=== PATIENT | female | born 1985 | race Caucasian/White ===

== ENCOUNTER 2022-03-07 09:41 | Emergency (ER) | payer SELFPAY ==
[2022-03-07 10:01] VITALS: BP 137/103; PULSE 113; RESP 24; TEMP 38.1; O2SAT 97; BMI 38.1
[2022-03-07] MEDS: KETOROLAC 60 MG/2 ML inj IM (11:49)
--- OUTSIDE RECORDS SUMMARY | 2022-03-07 12:00 | XMS_ITS | Encounter Summary ---
:1985 Author Organization [facility] Address [address] [place] [id number] Care Team Providers Name Role Phone No Ref-Primary, Physician Primary Care Provider Reason for Visit Reason Onset Date Comments Results 07/27/2020 Encounter Details Date Type Department Care Team Description 07/27/2020 [facility] Debora Carroll sa, RN Results Emergency Dept [address] [place] [id number] Social History Tobacco Use Types Packs/Day Years Used Date Smoking Tobacco: Never Assessed Alcohol Habits Answer Date Recorded How often do you have a drink containing alcohol? Never 07/29/2020 How many drinks containing alcohol do you have on a typical Not asked day when you are drinking? How often do you have six or more drinks on one occasion? No t asked Sex Assigned at Date Recorded Not on file COVID-19 Exposure Response Date Recorded In the last month, have you been in contact with No / Unsure 07/24/2020 2:34 PM CDT someone who was confirmed or suspected to have Coronavirus / COVID-19? documented as of this encounter Miscellaneous Notes Telephone Encounter - Megan Carroll - 07/27/2020 5:45 PM CDT [facility] Emergency Department Lab result notification: Reason for call Wound Culture Lab Result Final Wound culture (Axilla) report on 07/27/20. [facility] Emergency Dept discharge antibiotic prescribed: Sulfamethoxazole- Trimethoprim (Bactrim DS, Septra DS) 800-160 mg PO tablet, ??2 tablets by mouth 2 times daily for 10 days. (Correction) #1. Bacteria, Light growth Actinomyces neuii , which is [NOT TESTED] to antibiotic Incision and Drainage performed in Emergency Dept [Yes / No]: Yes Recommendations in treatment per [facility] ED lab result Culture protocol. ED visit Date: 07/24/20 Symptoms reported at ED visit Left Axilla Abscess ?? HPI Diana Hamm is a 34 year old female who presents to the ED for an evaluation of an golf ball-sized abscess in the left axilla area since 3 weeks ago. The patient states the abscess has progressively become more painful and red. She took some ibuprofen at 0800 this morning for pain management. Besides the abscess, she otherwise feels fine and has no other medical complaints at this time. Miscellaneous information Current symptoms 5:46 Spoke with patient and she states that taking the Bactrim makes her feel confused and muddy thinking, she did not take it today and that made her feel better.She states she is unsure if that is part of the healing process. She states that she will try taking it again tomorrow and see how she feels. Did provide FNA triage line and did offer virtual urgent care visit, patient does not have insurance and declined. She will think about continuing the Bactrim. Reviewed signs and symptoms of when to call back. She states there is some soreness but feels that the area is improving well, no fever or drainage. Recommendations/Instructions Patient notified of lab result and treatment recommendations. Contact your PCP clinic or return to the Emergency department if your: ?? Symptoms return. ?? Symptoms worsen or other concerning symptom's. Megan Carroll [facility] [place] Emergency Dept Lab Result RN documented in this encounter Plan of Treatment Not on filedocumented as of this encounter Visit Diagnoses Not on filedocumented in this encounter Care Teams Plan Consultant Relationship Specialty Start Date End Date No Ref-Primary, Physician PCP - General 07/24/20 documented as of this encounter
--- OUTSIDE RECORDS SUMMARY | 2022-03-07 12:00 | XMS_ITS | Encounter Summary ---
:1985 Author Organization [facility] Address [address] [place] [id number] Care Team Providers Name Role Phone Unavailable Primary Care Provider Unavailable Encounter Details Date Type Department Care Team Description 07/16/2005 Historic Results [facility] MH/Ric Coy nd, MD [address] [place], [place] [address] (Wo rk) Social History Tobacco Use Types Packs/Day Years [...] Assigned at Date Recorded Not on file documented as of this encounter Plan of Treatment Not on filedocumented as of this encounter Procedures Procedure Name Priority Date/Time Associated Comments Diagnosis HCG QUALITATIVE URINE Routine 07/16/2005 4:57 PM Results for this CDT procedure are i n the results section. DRUG ABUSE SCREEN 8 Routine 07/16/2005 4:57 PM Re sults for this URINE (UR) CDT procedure are i n the results section. TSH WITH FREE T4 Routine 07/16/2005 8:42 AM Resul ts for this REFLEX CDT procedure are i n the results section. GGT Routine 07/16/2005 8:42 AM Results f or this CDT procedure are i n the results section. COMPREHENSIVE Routine 07/16/2005 8:42 AM Results for this METABOLIC PANEL CDT procedure ar e in the results section. documented in this encounter Results HCG qualitative urine (07/16/2005 4:57 PM CDT) P athologist Signature HCG Qual Urine Negative NEG MISYS Specimen Anatomical Collection Method Collection Time Receive d Time (Source) Location / / Volume Laterality 07/16/2005 4:57 PM 6 5:57 CDT PM CDT Martinez Santiago MD LAB - URINE ORDERABLES Performing Organization Address [facility] Phon e Number MISYS Drug abuse screen 8 urine (UR) (07/16/2005 4:57 PM CDT) [facility] gist Method Time Signature Amphetamine Qual Negative NEG MISYS Urine Ethanol Qual Urine Negative NEG MISYS Opiates Negative NEG MISYS Qualitative Urine PCP Qual Urine Negative NEG MISYS Benzodiazepine Negative NEG MISYS Qual Urine Barbiturates Qual Negative NEG MISYS Urine Cocaine Qual Urine Negative NEG MISYS Cannabinoids Qual Negative NEG MISYS Urine Specimen Anatomical Collection Method Collection Time Receive d Time (Source) Location / / Volume Laterality 07/16/2005 4:57 PM 6 5:57 CDT PM CDT Martinez Santiago MD LAB - URINE ORDERABLES Performing Organization Address [facility] Phon e Number MISYS TSH with free T4 reflex (07/16/2005 8:42 AM CDT) athologist Signature TSH 2.26 0.4 - 5.0 MISYS mU/L Specimen Anatomical Collection Method Collection Time Receive d Time (Source) Location / / Volume Laterality 07/16/2005 8:42 AM 6 5:57 CDT PM CDT Martinez Santiago MD LAB - BLOOD ORDERABLES Performing Organization Address [facility] Phon e Number MISYS GGT (07/16/2005 8:42 AM CDT) athologist Signature GGT 15 0 - 30 U/L MISYS Specimen Anatomical Collection Method Collection Time Receive d Time (Source) Location / / Volume Laterality 07/16/2005 8:42 AM 6 5:57 CDT PM CDT Martinez Santiago MD LAB - BLOOD ORDERABLES Performing Organization Address [facility] Phon e Number MISYS Comprehensive metabolic panel (07/16/2005 8:42 AM CDT) athologist Signature Sodium 143 133 - 144 MISYS mmol/L Potassium 3.8 3.4 - 5.3 MISYS mmol/L Chloride 110 96 - 110 MISYS mmol/L Carbon Dioxide 22 20 - 32 MISYS mmol/L Glucose 86 60 - 110 MISYS mg/dL Urea Nitrogen 11 5 - 24 MISYS mg/dL Creatinine 0.77 0.60 - MISYS 1.20 mg/dL GFR Estimate >90 >60 MISYS mL/min/1.7 m2 GFR Estimate If >90 >60 MISYS Black mL/min/1.7 m2 Calcium 9.1 8.7 - 10.8 MISYS mg/dL AST 21 0 - 35 U/L MISYS Protein Total 7.6 6.0 - 8.2 MISYS g/dL Anion Gap 11 6 - 17 MISYS mmol/L Albumin 4.2 3.3 - 4.6 MISYS g/dL ALT 17 0 - 50 U/L MISYS Alkaline 63 40 - 150 MISYS Phosphatase U/L Bilirubin Total 0.5 0.2 - 1.3 MISYS mg/dL Specimen Anatomical Collection Method Collection Time Receive d Time (Source) Location / / Volume Laterality 07/16/2005 8:42 AM 6 6:29 CDT PM CDT Martinez Santiago MD LAB - BLOOD ORDERABLES Performing Organization Address City/State/ZIP Code Phon e Number MISYS documented in this encounter Visit Diagnoses Not on filedocumented in this encounter
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
--- OUTSIDE RECORDS SUMMARY | 2022-03-07 12:00 | XMS_ITS | Encounter Summary ---
:1985 Author Organization [place] Address [address] [place] [address] Care Team Providers Name Role Phone No Ref-Primary, Physician Primary Care Provider [phone] Reason for Visit Reason Comments Medication Reaction Encounter Details Date Type Department Care Team Description 07/29/2020 Emergency [facility] Skyla Harman Ce llulitis, [facility] Emergency Dep t DO fold [address] [facility] [place], [place] [address] [address] [phone] [place], [place] [id number] (Wo rk) Social History Tobacco Use Types Packs/Day Years Used Date Smoking Tobacco: Every Day Alcohol Use Standard Drinks/Week Comments Never 0 (1 standard drink = 0.6 oz pure alcoho l) Alcohol Habits Answer Date Recorded How often [...] / COVID-19? documented as of this encounter Last Filed Vital Signs Vital Sign Reading Time Taken Comments Blood Pressure 161/113 07/29/2020 3:55 AM CDT Pulse 95 07/29/2020 3:55 AM CDT Temperature 36.7 ??C (98.1 ??F) 07/29/2020 3:55 AM CDT Respiratory Rate 20 07/29/2020 3:55 AM CDT Oxygen Saturation 97% 07/29/2020 3:55 AM CDT Inhaled Oxygen Concentration - - Weight - - Height - - Body Mass Index - - documented in this encounter Discharge Instructions Discharge InstructionsSkyla Harman DO - 07/29/2020 5:40 AM CDT I reviewed with the patient signs and symptoms of wound infection: worsening redness, swelling, pain, fever, streaking of the skin, and if this is a concern, to return for provider evaluation. Patient expressed understanding of instructions. AttachmentsThe following attachments cannot be sent through Care Everywhere. Cellulitis, Discharge Instructions for ([place])documented in this encounter Medications at Time of Discharge Medication Sig Dispensed Refills Start Date End Date cephALEXin (KEFLEX) 500 Take 1 capsule (500 28 capsule 0 08/05/2020 MG capsule mg) by mouth 4 times daily for 7 days sulfamethoxazole-trimeth Take 2 tablets by 40 tablet 0 07/0608/03/2020 oprim (BACTRIM DS) mouth 2 times daily 800-160 MG tablet for 10 days documented as of this encounter ED Notes Arthur Villegas RN - 07/29/2020 3:53 AM CDT Pt states confusion, lightheadedness, and itching after being placed on bactrim after having an axillary cyst drained at this facility within past week. ABCs intact GCS 15 Skyla Harman DO - 07/29/2020 3:49 AM CDT History Chief Complaint: Medication Reaction The history is provided by the patient. Diana Hamm is a 34 year old female who presents for evaluation of concerns for medication reaction in the setting of starting Bactrim empirically for possible MRSA after a left axilla abscess wasincised and drained here five days ago. The patient states that the infection started around three and a half weeks ago. The patient states that she believes the bactrim is causing her symptoms of milddisorientation, lightheadeness, mentally slow and nausea. No reported headache, fever, focal weakness, slurred speech, vomiting or other symptoms. The patient denies any alcohol or drug use. Wound Culture Results from 07/24/20: Light Growth of Actinomyces neuii (!) Review of Systems Constitutional: Negative for fatigue and fever. Gastrointestinal: Positive for nausea. Negative for abdominal pain and vomiting. Neurological: Positive for light-headedness. Negative for numbness and headaches. Psychiatric/Behavioral: Positive for confusion. All other systems reviewed and are negative. Allergies: No Known Drug Allergies Medications: Bactrim Past Medical History: History reviewed. No past medical history listed or noted by the patient. Past Surgical History: BUNCH BREAKER surgery orthopedic surgery Soft tissue surgery Social History: The patient presents to the emergency department alone. Negative for alcohol use. Negative for drug use. Physical Exam Patient Vitals for the past 24 hrs: BP Temp Temp src Pulse Resp SpO2 07/29/20 0615 132/71 -- -- 90 -- -- 07/29/20 0355 (!) 161/113 98.1 ??F (36.7 ??C) Oral 95 20 97 % Physical Exam Nursing note and vitals reviewed. Constitutional: Well nourished. Resting comfortably. Eyes: Conjunctiva normal. Pupils are equal, round, and reactive to light. ENT: Nose normal. Mucous membranes pink and moist. Neck: Normal range of motion. CVS: Normal rate, regular rhythm. Normal heart sounds. No murmur. Pulmonary: Lungs clear to auscultation bilaterally. No wheezes/rales/rhonchi. GI: Abdomen soft. Nontender, nondistended. No rigidity or guarding. MSK: No calf tenderness or swelling. Neuro: Alert. Follows simple commands. Skin: Skin is warm and dry. L. Axilla with mild erythema and warmth, no induration/crepitance Psychiatric: Normal affect. Emergency Department Course Laboratory: CBC: WBC: 6.6, HB.8, PLT: 256 BMP: Anion Gap 2 (low), Glucose 127 (high) o/w WNL (Creatinine: 0.76) ISTAT gases lactate charleen POCT: AWNL PROCEDURE: Limited Bedside ED Ultrasound for Soft Tissue PERFORMED BY: Dr. Skyla Harman INDICATIONS/SYMPTOM: Skin redness and pain: abscess vs cellulitis PROBE: High frequency linear probe BODY LOCATION: Soft tissue located on L. axilla FINDINGS: Cobblestoning of soft tissue: present Hypoechoic fluid (ie abscess) identified: no INTERPRETATION: The soft tissue and muscle layers were evaluated. No abscess was identified. Findings indicate cellulitis. DOCUMENTATION: Images were archived to the [place] hard drive and archived to IT systems. Emergency Department Course: Reviewed: 040: I reviewed the patient's nursing notes, vitals, past medical records, Care Everywhere. Assessments: 0415: I assessed the patient and performed a physical exam at this time. 0500: I reassessed the patient and informed them of their workup thus far. 0545: I reassessed the patient and informed them of their workup thus far. Interventions: 512 Keflex 500mg PO Disposition: The patient was discharged to home. Impression & Plan Medical Decision Making: Diana Hamm is a 34 year old female who presents for evaluation of concern for medication reaction. The patient had an axillary abscess drained five days ago and started on Bactrim. She presents expressing concerns the bactrim is causing ill side effects including confusion, lightheadedness, nausea. She is hypertensive on arrival though this downtrended without intervention. She is neuro intact.She denies any headache. I do not feel advanced neuroimaging is warranted as I doubt serious neurologic sequalae. Bedside US without underlying abscess. She is nontoxic on exam. The history, physical exam is consistent with cellulitis. I reviewed wound culture results. Will switch antibiotic to keflex and will discontinue bactrim at this time. Area of cellulitis was demarcated at bedside. Supportive outpatient management is indicated with antibiotics. The patient is instructed to follow-up with primary care physician to ensure no progression and rapid resolution. The patient was given precautions to return if high fever, spread greater than 2cm outside of the marked area, worsening pain, vomiting or any other worsening symptoms. I offered analgesia though patient declining at this time. Patient agreeable to pl an of care. Diagnosis: ICD-10-CM 1. Cellulitis, axillary fold L03.119 Discharge Medications: Discharge Medication List as of 07/29/2020 5:36 AM START taking these medications Details cephALEXin (KEFLEX) 500 MG capsule Take 1 capsule (500 mg) by mouth 4 times daily for 7 days, Disp-28 capsule, R-0, Local Print Scribe Disclosure: I, Rajan Chao, am serving as a scribe at 4:09 AM on 07/29/2020 to document services personally performed by Skyla Harman DO based on my observations and the provider's statements to me. Skyla Harman DO 07/29/20 0618 documented in this encounter Plan of Treatment Not on filedocumented as of this encounter Procedures Procedure Name Priority Date/Time Associated Comments Diagnosis ISTAT GASES LACTATE Routine 07/29/2020 4:45 AM Re sults for this VENOUS POCT CDT procedure are i n the results section. CBC WITH PLATELETS & STAT 07/29/2020 4:44 AM R esults for this DIFFERENTIAL CDT procedure are i n the results section. BASIC METABOLIC PANEL STAT 07/29/2020 4:44 AM Results for this CDT procedure are i n the results section. documented in this encounter Results ISTAT gases lactate charleen POCT (07/29/2020 4:45 AM CDT) P athologist Signature Ph Venous 7.42 7.32 - 07/29/2020 POINT OF CARE 7.43 pH 4:49 AM CDT TEST, HANDHELD METER PCO2 Venous 43 40 - 50 mm 07/29/2020 POINT OF CARE Hg 4:49 AM CDT TEST, HANDHELD METER PO2 Venous 38 25 - 47 mm 07/29/2020 POINT OF CARE Hg 4:49 AM CDT TEST, HANDHELD METER Bicarbonate 28 21 - 28 07/29/2020 POINT OF CARE Venous mmol/L 4:49 AM CDT TEST, HANDHELD METER O2 Sat Venous 73 % 07/29/2020 POINT OF CARE 4:49 AM CDT TEST, HANDHELD METER Lactic Acid 0.9 0.7 - 2.1 07/29/2020 PO[facility] CARE mmol/L 4:49 AM CDT TEST, HANDHELD METER Specimen Anatomical Collection Method Collection Time Receive d Time (Source) Location / / Volume Laterality 07/29/2020 4:45 AM 4:49 CDT AM CDT Skyla Harman DO LAB - BEAKER POCT Performing Organization Address City/State/ZIP Code Phon e Number [facility] POINT OF CARE TEST, HANDHELD METER POINT OF CARE TEST, HANDHELD METER (ABNORMAL) Basic metabolic panel (07/29/2020 4:44 AM CDT) athologist Signature Sodium 137 133 - 144 07/29/2020 [facility] mmol/L 5:14 AM [facility] Potassium 3.7 3.4 - 5.3 07/29/2020 [facility] mmol/L 5:14 AM [facility] Chloride 109 94 - 109 07/29/2020 [facility] mmol/L 5:14 AM [facility] Carbon Dioxide 26 20 - 32 07/29/2020 [facility] mmol/L 5:20 AM [facility] Anion Gap 2 (L) 3 - 14 07/29/2020 [place] mmol/L 5:20 AM [facility] Glucose 127 (H) 70 - 99 07/29/2020 [place] mg/dL 5:20 AM [facility] Urea Nitrogen 15 7 - 30 07/29/2020 [place] mg/dL 5:20 AM [facility] Creatinine 0.76 0.52 - 07/29/2020 [facility] 1.04 mg/dL 5:20 AM [facility] GFR Estimate >90 >60 07/29/2020 [place] mL/min/{1. 5:20 AM [facility] 73_m2} HOSPITAL Comment: Non GFR Calc Starting 03/23/2018, serum creatinine ba sed estimated GFR (eGFR) will be calculated using the Chronic Kidney Dise [facility] Epidemiology Collaboration (CKD-EPI) equation. GFR Estimate If >90 >60 mL/min/{1.73_m2} 07/29/2020 5: 20 AM [facility] Comment: GFR Calc Starting 03/23/2018, serum creatinine ba sed estimated GFR (eGFR) will be calculated using the Chronic Kidney Dise [facility] Epidemiology Collaboration (CKD-EPI) equation. Calcium 8.8 8.5 - 10.1 mg/dL 07/29/2020 5:20 AM [facility] Specimen Anatomical Collection Method Collection Time Receive d Time (Source) Location / / Volume Laterality Blood 07/29/2020 4:44 AM 4:55 CDT AM CDT Skyla E Ghazal DO LAB - BLOOD ORDERABLES Performing Organization Address City/State/ZIP Code Phon e Number M [facility] [address] [address] [facility] [address] [place], [place] [address], [facility] [phone] [facility] [address] [address], [facility] [phone] [facility] CBC with platelets differential (07/29/2020 4:44 AM CDT) [facility] Method Time Signature WBC 6.6 4.0 - 07/29/2020 [facility] 11.0 4:59 AM [facility] 10e9/L [facility] RBC Count 4.37 3.8 - 5.2 07/29/2020 [facility] 10e12/L 4:59 AM [facility] Hemoglobin 13.8 11.7 - 07/29/2020 [facility] 15.7 g/dL 4:59 AM [facility] Hematocrit 40.9 35.0 - 07/29/2020 [facility] 47.0 % 4:59 AM [facility] MCV 94 78 - 100 07/29/2020 [facility] fl 4:59 AM [facility] MCH 31.6 26.5 - 07/29/2020 [facility] 33.0 pg 4:59 AM [facility] MCHC 33.7 31.5 - 07/29/2020 [facility] 36.5 g/dL 4:59 AM [facility] RDW 13.2 10.0 - 07/29/2020 [facility] 15.0 % 4:59 AM [facility] Platelet Count 256 150 - 450 07/29/2020 [facility] 10e9/L 4:59 AM [facility] Diff Method Automated 07/29/2020 [facility] Method 4:59 AM [facility] % Neutrophils 44.7 % 07/29/2020 [facility] 4:59 AM [facility] % Lymphocytes 38.7 % 07/29/2020 [facility] 4:59 AM CDT [facility] % Monocytes 10.2 % 07/29/2020 [facility] 4:59 AM [facility] % Eosinophils 5.3 % 07/29/2020 [facility] 4:59 AM [facility] % Basophils 0.9 % 07/29/2020 [facility] 4:59 AM [facility] % Immature 0.2 % 07/29/2020 [facility] Granulocytes 4:59 AM [facility] Nucleated RBCs 0 0 /100 07/29/2020 [facility] 4:59 AM [facility] Absolute 2.9 1.6 - 8.3 07/29/2020 [place] Neutrophil 10e9/L 4:59 AM [facility] Absolute 2.5 0.8 - 5.3 07/29/2020 [place] Lymphocytes 10e9/L 4:59 AM [facility] Absolute 0.7 0.0 - 1.3 07/29/2020 [place] Monocytes 10e9/L 4:59 AM [facility] Absolute 0.4 0.0 - 0.7 07/29/2020 [place] Eosinophils 10e9/L 4:59 AM [facility] Absolute 0.1 0.0 - 0.2 07/29/2020 [place] Basophils 10e9/L 4:59 AM [facility] Abs Immature 0.0 0 - 0.4 07/29/2020 [place] Granulocytes 10e9/L 4:59 AM [facility] Absolute 0.0 07/29/2020 [place] Nucleated RBC 4:59 AM [facility] Specimen Anatomical Collection Method Collection Time Receive d Time (Source) Location / / Volume Laterality Blood 07/29/2020 4:44 AM 4:55 CDT AM CDT Skyla Harman DO LAB - BLOOD ORDERABLES Performing Organization Address City/State/ZIP Code Phon e Number M [facility] [address] [place], [place] [address] [facility] [address] [phone] documented in this encounter Visit Diagnoses Diagnosis Cellulitis, axillary fold Cellulitis and abscess of upper arm and forearm documented in this encounter Administered Medications Inactive Administered Medications - up to 3 most recent administrations Medication Order MAR Action Action Date Dose Rate Site cephALEXin (KEFLEX) capsule 500 mg Given 07/29/2020 5:13 AM CDT 500 mg STAT, 500 mg, Oral, ONCE, On 07/29/20 at 0445, For 1 dose, Indications: Skin and Soft Tissue Infection documented in this encounter Active and Recently Administered Medications Times are shown in CDT. Scheduled Medication Order 07/27/2020 07/28/2020 07/29/2020 cephALEXin (KEFLEX) capsule 500 mg (COMPLETED) 512 (Given - Provider: Mary Jane Ribeiro RN) STAT, 500 mg, Oral, ONCE, 07/29/20 at 0445, For 1 dose, Indications: Skin and Soft Tissue Infection documented in this encounter Care Teams Catering Convention Services Manager Relationship Specialty Start Date End Date No Ref-Primary, Physician PCP - General 07/24/20 documented as of this encounter
--- OUTSIDE RECORDS SUMMARY | 2022-03-07 12:00 | XMS_ITS | Encounter Summary ---
:1985 Author Organization [facility] Address [address] [place] [address] Care Team Providers Name Role Phone No Ref-Primary, Physician Primary Care Provider Encounter Details Date Type Department Care Team Description 07/24/2020 Travel Social History Tobacco Use Types Packs/Day Years [...] / COVID-19? documented as of this encounter Plan of Treatment Not on filedocumented as of this encounter Visit Diagnoses Not on filedocumented in this encounter Care Teams Edge Stainer Machine Relationship Specialty Start Date End Date No Ref-Primary, Physician PCP - General 07/24/20 documented as of this encounter
--- OUTSIDE RECORDS SUMMARY | 2022-03-07 12:00 | XMS_ITS | Encounter Summary ---
:1985 Author Organization [place] Address [address] [place] [address] Care Team Providers Name Role Phone No Ref-Primary, Physician Primary Care Provider Reason for Visit Reason Comments Wound Infection Encounter Details Date Type Department Care Team Description 07/24/2020 [facility] Abscess [facility], left; [facility] Emergency Dep t MD Kevin Cellulitis of axilla, left [address] [facility] EM[facility] PHYS[facility]ANS [facility] [phone] [address] [phone] [address] [place], [place] [id number] (Wo rk) Social History Tobacco Use Types [...] Sign Reading Time Taken Comments Blood Pressure 158/108 07/24/2020 2:37 PM CDT Pulse 81 07/24/2020 2:37 PM CDT Temperature 36.7 ??C (98 ??F) 07/24/2020 2:37 PM CDT Respiratory Rate 20 07/24/2020 2:37 PM CDT Oxygen Saturation 99% 07/24/2020 2:37 PM CDT Inhaled Oxygen Concentration - - Weight - - Height - - Body Mass Index - - documented in this encounter Discharge Instructions AttachmentsThe following attachments cannot be sent through Care Everywhere. Abscess, Incision And Drainage ([place])documented in this encounter Medications at Time of Discharge Medication Sig Dispensed Refills Start Date End Date sulfamethoxazole-trimeth Take 2 tablets by 40 tablet 0 07/0608/03/2020 oprim (BACTRIM DS) mouth 2 times daily 800-160 MG tablet for 10 days documented as of this encounter ED Notes Wendi Concepcion RN - 07/24/2020 2:36 PM CDT 3 weeks of abscess left axilla area. Golfball size and growing. Very painful. Ibuprofen taken at 0800 this am. Cj Salter MD - 07/24/2020 1:50 PM CDT History Chief Complaint: Left Axilla Abscess JODIE Hamm is a 34 year old female [...] no other medical complaints at this time. Review of Systems Skin: Positive for wound (left axilla abscess). All other systems reviewed and are negative. Allergies: The patient has no known allergies. Medications: The patient is not currently taking any prescribed medications. Past Medical History: Bipolar disorder Social History: The patient presented alone. Physical Exam Patient Vitals for the past 24 hrs: BP Temp Temp src Pulse Resp SpO2 07/24/20 1437 (!) 158/108 98 ??F (36.7 ??C) Oral 81 20 99 % Physical Exam Gen: Uncomfortable secondary to pain Eyes: Normal conjunctiva, No discharge CV: ppi, regular Resp: speaking in full sentences without any resp distress Extremity: Left axilla there is an approximately 5 x 2 and half centimeter fluctuant area there is an area and this is exquisitely tender to touch extending medially towards the lateral border of the pectoralis muscle there is blanching erythema is also tender to touch. No spontaneous drainage is occur ring. Limited range of motion of the left upper extremity secondary to pain from this axillary mass Skin: warm dry well perfused Neuro: Alert, no gross motor or sensory deficits, gait stable Emergency Department Course Procedures: Incision and Drainage LOCATIONS: Left axilla ANESTHESIA: Local field block using Lidocaine 1% with epinephrine, total of 5 mLs PREPARATION: Cleansed with Normal Saline PROCEDURE: Area was incised with # 11 Blade (Sharp Point) with a Single Straight incision. Wound treatment included Deloculation, Purulent Drainage and Expression of Material. Packing consisted of No Packing. Appropriate dressing was applied to cover the area. PATIENT STATUS: Patient tolerated the procedure well. There were no complications. Laboratory: Wound Culture Aerobic Bacterial: pending Emergency Department Course: Reviewed: 1614 I reviewed nursing notes, vitals and past history. Assessments: 1619 I obtained history and examined the patient as noted above. 1635 I performed an incision and drainage procedure as documented above. Disposition: The patient was discharged to home. Impression & Plan Medical Decision Making: Axillary abscess with associated cellulitis Incision and drainage here in the. Wound culture sent will start empirically on Bactrim given the suspicion for MRSA abscess. Patient comfortable agreeable with that plan. Critical Care time: none Diagnosis: ICD-10-CM 1. Abscess of axilla, left L02.412 Wound Culture Aerobic Bacterial 2. Cellulitis of axilla, left L03.112 Discharge Medications: Discharge Medication List as of 07/24/2020 5:02 PM START taking these medications Details sulfamethoxazole-trimethoprim (BACTRIM DS) 800-160 MG tablet Take 2 tablets by mouth 2 times daily for 10 days, Disp-40 tablet, R-0, E-PrescribeIndication: Possible MRSA infection Scribe Disclosure: I, Katie Quezada, am serving as a scribe at 4:34 PM on 07/24/2020 to document services personally performed by Cj Salter MD based on my observations and the provider's statements to me. Cj Salter MD 07/25/20 0038 documented in this encounter Miscellaneous Notes Result Encounter Note - Dash Platt RN - 07/24/2020 5:18 PM CDT [facility] ED discharge antibiotic (if prescribed): ??Sulfamethoxazole- Trimethoprim (Bactrim DS, Septra DS) 800-160 mg PO tablet, ??2 tablets by mouth 2 times daily for 10 days. (Correction) Incision and Drainage performed in Emergency Dept [Yes / No] : Yes No changes in treatment per [facility] ED lab result culture protocol. documented in this encounter Plan of Treatment Not on filedocumented as of this encounter Procedures Procedure Name Priority Date/Time Associated Diagnosis Comme nts WOUND CULTURE STAT 07/24/2020 4:48 PM Abscess of axilla, Re sults for this AEROBIC BACTERIAL CDT left procedure are in the results section. documented in this encounter Results (ABNORMAL) Wound Culture Aerobic Bacterial (07/24/2020 4:48 PM CDT) Component Value Ref Test Analysis Performed At [facility] Range Method Time Signature Specimen Wound Axilla INFECTIOUS Description Abscess DISEASES [facility], [facility] Special Specimen 07/24/2020 INFECTIOUS Requests collected in 8:31 PM CDT DISEASES eSwab transport DIAGNOSTIC (white cap) LABORATORY, [facility] Culture Micro Light growth 07/27/2020 INFECTIOUS Actinomyces neuii 8:52 AM CDT DISEASES (A) DIAGNOSTIC LABORATORY, [facility] Culture Micro Susceptibility 07/27/2020 INFECTIOUS testing not 8:52 AM CDT DISEASES routinely done DIAGNOSTIC LABORATORY, [facility] Specimen Anatomical Collection Method Collection Time Receive d Time (Source) Location / / Volume Laterality Specimen from 07/24/2020 4:48 PM 07/25/19 21 5:10 wound (specimen) CDT PM CDT Comment: Axilla~Abscess Cj Salter MD LAB - MICRO GENERAL ORDERABL ES Performing Organization Address City/State/ZIP Code Phon e Number INFECTIOUS DISEASES DIAGNOSTIC [address] [facility] [address] [address] LABORATORY, [facility] documented in this encounter Visit Diagnoses Diagnosis Abscess of axilla, left Cellulitis and abscess of upper arm and forearm Cellulitis of axilla, left Cellulitis and abscess of upper arm and forearm documented in this encounter Active and Recently Administered Medications Care Teams Metal Furniture Glazier Relationship Specialty Start Date End Date No Ref-Primary, Physician PCP - General 07/24/20 documented as of this encounter
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
--- OUTSIDE RECORDS SUMMARY | 2022-03-07 12:00 | XMS_ITS | Clinical Summary ---
:1985 Author Organization [place] Address [address] [place] [address] Care Team Providers Name Role Phone No Ref-Primary, Physician Primary Care Provider Allergies No known active allergies Medications No known medications Social History Tobacco Use Types Packs/Day Years [...] Assigned at Date Recorded Not on file Last Filed Vital Signs Vital Sign Reading Time Taken Comments Blood Pressure 132/71 07/29/2020 6:15 AM CDT Pulse 90 07/29/2020 6:15 AM CDT Temperature 36.7 ??C (98.1 ??F) 07/29/2020 3:55 AM CDT Respiratory Rate 20 07/29/2020 3:55 AM CDT Oxygen Saturation 97% 07/29/2020 3:55 AM CDT Inhaled Oxygen Concentration - - Weight - - Height - - Body Mass Index - - Plan of Treatment Health Maintenance Due Date Last Done Comments ADVANCE CARE PLANNING 1985 ANNUAL REVIEW OF HM ORDERS 1985 HEPATITIS B IMMUNIZATION (1 of 3 - 1985 3-dose series) YEARLY PREVENTIVE VISIT 1985 COVID-19 Vaccine (#1) 06/21/1987 Pneumococcal Vaccine: Pediatrics 1992 (0 to 5 Years) and At-Risk Patients (6 to 64 Years) (1 - PCV) HIV SCREENING 2001 HEPATITIS C SCREENING 2004 PAP 12/22/2007 DTAP/TDAP/TD IMMUNIZATION (1 - 12/22/2011 Tdap) PHQ-2 (once per calendar year) 2021 INFLUENZA VACCINE (#1) 2021 IPV IMMUNIZATION Aged Out No longer eligi ble based on patient's age to complete this topic MENINGITIS IMMUNIZATION Aged Out No longe r eligible based on patient's age to complete this topic Care Teams Personal Driver Relationship Specialty Start Date End Date No Ref-Primary, Physician PCP - General 07/24/20
--- NOTE | 2022-03-09 14:09 | ED_ITS ---
HPI - Ear Problem General Chief complaint: Ear/Nose/Throat Problem Stated complaint: Possible Lt ear drum rupture History of Present Illness HPI Narrative: 36-year-old woman here with complaint of left ear pain. Severe. Was recently diagnosed with influenza a. Has had nasopharyngeal congestion. Left ear pain started yesterday and has escalated tremendously. Then there was a sudden whoosh of air and something randolph to this and bubbling and pinkish yellow drainage. Pain has continued. Unable to get it under control with ibuprofen or acetaminophen. Related Data Home Medications Medication Instructions Recorded Confirmed No Known Home Medications 03/07/22 03/07/22 Allergies Allergy/AdvReac Type Severity Reaction Status Date / Time No Known Drug Allergies Allergy Verified 03/07/22 10:07 Review of Systems Status of ROS: Reports: 6 or more systems reviewed and unremarkable except as noted in History and below PFSH PFSH Social History Smoking Status: Current every day smoker What tobacco products do you use: cigarettes Years smoked: 18 Smoking quit date/years: >15 years ago Do you use any of these nicotine containing products: None Second hand tobacco smoke exposure: No How often do you have a drink containing alcohol: never AUDIT-C Alcohol total score: 0 Non-prescribed substance use: denies use Caffeine: Yes service: No Exam Narrative: Exam Narrative: Restless. Tearful. Clearly uncomfortable. Just wants to stand. Rocking back and forth. Hand at times to the left side of her face. Oropharynx is unremarkable. Moist. Right TM WNL. Is tender to movement of the tragus in the pin a on the left. Generally exquisitely tender to palpation over the periauricular area of the left ear. There is mild erythema without significant edema to the canal. The TM has a bubbles noted within or behind. Not terribly inflamed. This there may be a perforation visible here though a little difficult to tell. I would suspect that to be so given clinical history. Const: Documenting provider has reviewed patient's vital signs: yes Course Vital Signs Vital signs: Initial Vital Signs Temperature 100.6 F H 03/07/22 10:01 Temperature Source Temporal Artery Scan 03/07/22 10:01 Pulse Rate 113 H 03/07/22 10:01 Respiratory Rate 24 03/07/22 10:01 Blood Pressure 137/103 H 03/07/22 10:01 Blood Pressure Mean 114 03/07/22 10:01 Blood Pressure Position Supine 03/07/22 10:01 Pulse Oximetry 97 03/07/22 10:01 Oxygen Delivery Method 03/07/22 10:01 Vital Signs Temperature 100.6 F H 03/07/22 10:01 Pulse Rate 113 H 03/07/22 10:01 Respiratory Rate 24 03/07/22 10:01 Blood Pressure 137/103 H 03/07/22 10:01 Pulse Oximetry 97 03/07/22 10:01 Oxygen Delivery Method 03/07/22 10:01 Temperature 100.6 F H 03/07/22 10:01 Pulse Rate 113 H 03/07/22 10:01 Respiratory Rate 24 03/07/22 10:01 Blood Pressure 137/103 H 03/07/22 10:01 Pulse Oximetry 97 03/07/22 10:01 Oxygen Delivery Method 03/07/22 10:01 Medical Decision Making MDM Narrative Medical decision making narrative: We discussed potential treatment. She was even asking for injection of the left ear somehow to alleviate her pain. Given the degree of tenderness though that she is exhibiting, the hypesthesia here I think that would be intolerable. Furthermore would be temporary. I did discuss potential opiates though she does not want this given now about 5 years? sober. Settled on shot of ketorolac and treatment as delineated below. Does have a fever though in the setting of influenza and I would have some concern potentially about mastoiditis. Would want close follow-up. Discharge Plan Discharge Clinical Impression: Otalgia of left ear, Otitis externa, Otitis media, Influenza A Patient Disposition: Home w/ Parent or Adult Condition: Stable Instructions: Ear Infection (ED) Additional Instructions: Focus on hydration. Sleep under the mist of a cool mist humidifier. Consider guaifenesin for mucus thinning. I would get pseudoephedrine maybe the 12 hour formulation, ask the pharmacist, for drying and decongestion. Having a little time to consider I think it might be a better idea for you to start oral antibiotics now as well. Know you say you do not like to do antibiotics, so consider taking probiotics 1- 3 times daily, even just a tbsp of yogurt with live active cultures during course of antibiotics and for maybe a week beyond. If you not seeing improvement within 2 days or fever spikes back up again I would be re-evaluated. Also for uncontrolled pain, repeated vomiting. Can take up to 800 mg of ibuprofen per dose which if you wanted could also be combined with up to 1000 mg of acetaminophen per dose. Alternative to the ibuprofen would be up to 500 mg of naproxen 2 times daily. Prednisone and Augmentin and Cortisporin drops from [facility]. 8 days of Augmentin should be enough. Take 60 mg of prednisone today. This can be a little stimulating. Prescriptions: No Action No Known Home Medications Follow Up/Referrals: Phan Brar MD [Staff Physician] - Stand Alone Forms: [employer]er[employer] Info Instructions
== END 2022-03-07 12:03 | disposition home or self-care (01) ==
LOC: ED2 11:55
PROVIDERS: Emergency Provider Family Medicine
DX: H66.92 Otitis media, unspecified, left ear (principal); J09.X2 Influenza due to identified novel influenza A virus with other respiratory manifestations
CPT/HCPCS: 96372; 99283; J1885